=== PATIENT | female | born 1940 | race Caucasian/White ===

== ENCOUNTER 2019-01-23 02:21 | Inpatient (IN) | payer MEDICARE, OTHER, MEDICAID ==
[2019-01-23] MEDS: NITROGLYCERIN 50 MG/D5W (PMX) 250 ML IV (02:20)
[2019-01-23] MEDS: ALBUTEROL 0.083% (NEB) 2.5 MG/3 ML AMP INH (02:40)
[2019-01-23] MEDS: IPRATROPIUM (NEB) 0.5 MG/2.5 ML AMP INH (02:40)
[2019-01-23] MEDS: ASPIRIN 325 MG TAB PO (02:55)
[2019-01-23] MEDS: CEFTRIAXONE 1 GM/50 ML (PMX) 50 ML IVPB ×2 (02:55→07:25)
[2019-01-23] MEDS: FUROSEMIDE 40 MG INJ IV ×2 (02:55→08:49)
[2019-01-23] MEDS: AZITHROMYCIN 500MG/NS (PMX) 250 ML IV (03:36)
[2019-01-23] MEDS ORDERED: ONDANSETRON 4 MG INJ IV ×3 (04:00→06:30)
[2019-01-23] MEDS ORDERED: ALBUTEROL/IPRATROPIUM (NEB) 3 ML AMP NEB (04:00)
[2019-01-23] MEDS ORDERED: ACETAMINOPHEN 650MG/20.3ML CUP PO (04:00)
[2019-01-23] MEDS ORDERED: ACETAMINOPHEN 325 MG TAB PO ×2 (04:00→06:30)
[2019-01-23] MEDS: ONDANSETRON 4 MG INJ IV (04:17)
[2019-01-23] MEDS ORDERED: NITROGLYCERIN (SL) 0.4 MG TAB SL (06:30)
[2019-01-23] MEDS ORDERED: ALBUTEROL/IPRATROPIUM (NEB) 3 ML AMP HHN (06:30)
[2019-01-23] MEDS ORDERED: NACL 0.9% 3 ML SYG IV (06:30)
[2019-01-23] MEDS: FERROUS SULFATE (EC) 325 MG TAB PO (08:45)
[2019-01-23] MEDS: ASPIRIN (EC) 81 MG TAB PO (08:45)
[2019-01-23] MEDS: SENNA/DOCUSATE NA (8.6MG/50MG) TAB PO (08:45)
[2019-01-23] MEDS: GABAPENTIN 400 MG CAP PO ×3 (08:45→20:43)
[2019-01-23] MEDS: BACLOFEN 10 MG TAB PO (08:45)
[2019-01-23] MEDS: ESCITALOPRAM 10 MG TAB PO (08:46)
[2019-01-23] MEDS: ATENOLOL 50 MG TAB PO (08:47)
[2019-01-23] MEDS: FAMOTIDINE 20 MG INJ IV ×2 (08:48→20:47)
[2019-01-23] MEDS: HEPARIN 5,000 UNIT/1 ML VIAL SC ×4 (08:50→21:24)
[2019-01-23] MEDS: MECLIZINE 25 MG TAB PO ×2 (08:53→20:46)
[2019-01-23] MEDS ORDERED: NON-FORMULARY/PATIENT OWN MED (Sitagliptin Phos/Metformin HCl (Janumet 50-500 mg Tablet) 1 PO (09:00)
[2019-01-23] MEDS ORDERED: FUROSEMIDE 40 MG INJ IV (09:00)
[2019-01-23] MEDS: AZITHROMYCIN 500MG/NS (PMX) 250 ML IVPB (11:07)
[2019-01-23] MEDS ORDERED: GLUCAGON 1 MG INJ IM (19:30)
[2019-01-23] MEDS ORDERED: DEXTROSE 50% 50 ML SYRINGE IV ×2 (19:30)
[2019-01-23] MEDS ORDERED: GLUCOSE GEL 15 GRAM TUBE BUCCAL (19:30)
[2019-01-23] MEDS ORDERED: GLUCOSE GEL 15 GRAM TUBE PO ×2 (19:30)
[2019-01-23] MEDS: traMADol 50 MG TAB PO (20:46)
[2019-01-23] MEDS: ATORVASTATIN 10 MG TAB PO (20:46)
[2019-01-23] MEDS: INSULIN ASPART [NOVOLOG] 3 ML PEN SC (21:00)
[2019-01-23] MEDS ORDERED: NON-FORMULARY/PATIENT OWN MED (Lovastatin* 10 MG) PO (21:00)
[2019-01-23] MEDS: INSULIN GLARGINE [LANTus] (100 UNITS/ML) SYG SC (21:23)
[2019-01-24] MEDS: ACCU-CHEK XX (02:30)
[2019-01-24] MEDS: CEFTRIAXONE 1 GM/50 ML (PMX) 50 ML IVPB (05:37)
[2019-01-24] MEDS: INSULIN ASPART [NOVOLOG] 3 ML PEN SC ×4 (07:55→21:22)
[2019-01-24] MEDS: AZITHROMYCIN 500MG/NS (PMX) 250 ML IVPB (08:37)
[2019-01-24] MEDS: FAMOTIDINE 20 MG INJ IV (08:37)
[2019-01-24] MEDS: GABAPENTIN 400 MG CAP PO ×3 (08:38→21:11)
[2019-01-24] MEDS: ESCITALOPRAM 10 MG TAB PO (08:38)
[2019-01-24] MEDS: BACLOFEN 10 MG TAB PO (08:38)
[2019-01-24] MEDS: FERROUS SULFATE (EC) 325 MG TAB PO (08:38)
[2019-01-24] MEDS: SENNA/DOCUSATE NA (8.6MG/50MG) TAB PO (08:38)
[2019-01-24] MEDS: ASPIRIN (EC) 81 MG TAB PO (08:39)
[2019-01-24] MEDS: MECLIZINE 25 MG TAB PO ×2 (08:39→21:12)
[2019-01-24] MEDS: ATENOLOL 50 MG TAB PO (08:40)
[2019-01-24] MEDS: FUROSEMIDE 40 MG INJ IV (08:40)
[2019-01-24] MEDS: HEPARIN 5,000 UNIT/1 ML VIAL SC ×2 (08:55→21:22)
[2019-01-24] MEDS ORDERED: FUROSEMIDE 20 MG INJ IV (15:30)
[2019-01-24] MEDS: ATORVASTATIN 10 MG TAB PO (21:12)
[2019-01-24] MEDS: traMADol 50 MG TAB PO (21:12)
[2019-01-24] MEDS: INSULIN GLARGINE [LANTus] (100 UNITS/ML) SYG SC (21:23)
[2019-01-25] MEDS: INSULIN ASPART [NOVOLOG] 3 ML PEN SC ×5 (01:12→20:58)
[2019-01-25] MEDS: ACCU-CHEK XX ×2 (01:13→02:00)
[2019-01-25] MEDS: CEFTRIAXONE 1 GM/50 ML (PMX) 50 ML IVPB (06:11)
[2019-01-25] MEDS: GABAPENTIN 400 MG CAP PO ×3 (08:22→20:49)
[2019-01-25] MEDS: AZITHROMYCIN 500MG/NS (PMX) 250 ML IVPB (08:22)
[2019-01-25] MEDS: SENNA/DOCUSATE NA (8.6MG/50MG) TAB PO (08:22)
[2019-01-25] MEDS: FERROUS SULFATE (EC) 325 MG TAB PO (08:23)
[2019-01-25] MEDS: ESCITALOPRAM 10 MG TAB PO (08:23)
[2019-01-25] MEDS: FUROSEMIDE 40 MG TAB PO (08:23)
[2019-01-25] MEDS: MECLIZINE 25 MG TAB PO ×2 (08:23→20:49)
[2019-01-25] MEDS: BACLOFEN 10 MG TAB PO (08:23)
[2019-01-25] MEDS: ASPIRIN (EC) 81 MG TAB PO (08:24)
[2019-01-25] MEDS: FAMOTIDINE 20 MG TAB PO (08:24)
[2019-01-25] MEDS: HEPARIN 5,000 UNIT/1 ML VIAL SC ×2 (08:25→20:59)
[2019-01-25] MEDS: ATENOLOL 50 MG TAB PO (08:27)
[2019-01-25] MEDS: AMLODIPINE 2.5 MG TAB PO ×2 (13:56→20:49)
[2019-01-25] MEDS ORDERED: HEPARIN 5,000 UNIT/1 ML VIAL SC (14:00)
[2019-01-25] MEDS: FUROSEMIDE 20 MG INJ IV (15:04)
[2019-01-25] MEDS: ATORVASTATIN 10 MG TAB PO (20:49)
[2019-01-25] MEDS: traMADol 50 MG TAB PO (20:49)
[2019-01-25] MEDS: INSULIN GLARGINE [LANTus] (100 UNITS/ML) SYG SC (21:14)
[2019-01-26] MEDS: ACCU-CHEK XX (02:12)
[2019-01-26] MEDS: CEFTRIAXONE 1 GM/50 ML (PMX) 50 ML IVPB (05:15)
[2019-01-26] MEDS: POLYETHYLENE GLYCOL 17 GM PACKET PO (06:10)
[2019-01-26] MEDS: INSULIN ASPART [NOVOLOG] 3 ML PEN SC ×4 (07:57→21:09)
[2019-01-26] MEDS: AZITHROMYCIN 500MG/NS (PMX) 250 ML IVPB (07:59)
[2019-01-26] MEDS: FAMOTIDINE 20 MG TAB PO (07:59)
[2019-01-26] MEDS: ASPIRIN (EC) 81 MG TAB PO (08:00)
[2019-01-26] MEDS: FERROUS SULFATE (EC) 325 MG TAB PO (08:00)
[2019-01-26] MEDS: MECLIZINE 25 MG TAB PO ×2 (08:00→20:57)
[2019-01-26] MEDS: BACLOFEN 10 MG TAB PO (08:00)
[2019-01-26] MEDS: GABAPENTIN 400 MG CAP PO ×3 (08:00→20:57)
[2019-01-26] MEDS: FUROSEMIDE 40 MG TAB PO (08:00)
[2019-01-26] MEDS: AMLODIPINE 2.5 MG TAB PO ×2 (08:01→20:57)
[2019-01-26] MEDS: ATENOLOL 50 MG TAB PO (08:02)
[2019-01-26] MEDS: HEPARIN 5,000 UNIT/1 ML VIAL SC ×2 (08:06→21:09)
[2019-01-26] MEDS: ESCITALOPRAM 10 MG TAB PO (08:09)
[2019-01-26] MEDS: SENNA/DOCUSATE NA (8.6MG/50MG) TAB PO (20:57)
[2019-01-26] MEDS: ATORVASTATIN 10 MG TAB PO (20:57)
[2019-01-26] MEDS: traMADol 50 MG TAB PO (20:58)
[2019-01-26] MEDS: INSULIN GLARGINE [LANTus] (100 UNITS/ML) SYG SC (21:09)
[2019-01-27] MEDS: ACCU-CHEK XX (02:33)
[2019-01-27] MEDS: CEFTRIAXONE 1 GM/50 ML (PMX) 50 ML IVPB (05:26)
[2019-01-27] MEDS: INSULIN ASPART [NOVOLOG] 3 ML PEN SC ×4 (07:55→20:26)
[2019-01-27] MEDS: GABAPENTIN 400 MG CAP PO ×3 (08:24→20:15)
[2019-01-27] MEDS: MECLIZINE 25 MG TAB PO ×2 (08:24→20:13)
[2019-01-27] MEDS: ASPIRIN (EC) 81 MG TAB PO (08:24)
[2019-01-27] MEDS: ESCITALOPRAM 10 MG TAB PO (08:24)
[2019-01-27] MEDS: FAMOTIDINE 20 MG TAB PO (08:24)
[2019-01-27] MEDS: BACLOFEN 10 MG TAB PO (08:24)
[2019-01-27] MEDS: FERROUS SULFATE (EC) 325 MG TAB PO (08:25)
[2019-01-27] MEDS: ATENOLOL 50 MG TAB PO (08:25)
[2019-01-27] MEDS: AMLODIPINE 2.5 MG TAB PO ×2 (08:25→20:14)
[2019-01-27] MEDS: FUROSEMIDE 40 MG TAB PO (08:26)
[2019-01-27] MEDS: AZITHROMYCIN 500 MG TAB PO (08:26)
[2019-01-27] MEDS: HEPARIN 5,000 UNIT/1 ML VIAL SC ×2 (09:57→20:27)
[2019-01-27] MEDS: traMADol 50 MG TAB PO (20:14)
[2019-01-27] MEDS: SENNA/DOCUSATE NA (8.6MG/50MG) TAB PO (20:14)
[2019-01-27] MEDS: ATORVASTATIN 10 MG TAB PO (20:14)
[2019-01-27] MEDS: INSULIN GLARGINE [LANTus] (100 UNITS/ML) SYG SC (20:26)
[2019-01-28] MEDS: ACCU-CHEK XX (01:46)
[2019-01-28] MEDS: POLYETHYLENE GLYCOL 17 GM PACKET PO (05:56)
[2019-01-28] MEDS: CEFTRIAXONE 1 GM/50 ML (PMX) 50 ML IVPB (05:57)
[2019-01-28] MEDS: INSULIN ASPART [NOVOLOG] 3 ML PEN SC ×3 (07:55→18:25)
[2019-01-28] MEDS: ATENOLOL 50 MG TAB PO (08:32)
[2019-01-28] MEDS: FERROUS SULFATE (EC) 325 MG TAB PO (09:04)
[2019-01-28] MEDS: BACLOFEN 10 MG TAB PO (09:04)
[2019-01-28] MEDS: GABAPENTIN 400 MG CAP PO ×2 (09:04→13:16)
[2019-01-28] MEDS: AMLODIPINE 2.5 MG TAB PO (09:04)
[2019-01-28] MEDS: ESCITALOPRAM 10 MG TAB PO (09:04)
[2019-01-28] MEDS: FAMOTIDINE 20 MG TAB PO (09:05)
[2019-01-28] MEDS: AZITHROMYCIN 500 MG TAB PO (09:05)
[2019-01-28] MEDS: FUROSEMIDE 40 MG TAB PO (09:05)
[2019-01-28] MEDS: ASPIRIN (EC) 81 MG TAB PO (09:05)
[2019-01-28] MEDS: MECLIZINE 25 MG TAB PO (09:05)
[2019-01-28] MEDS: HEPARIN 5,000 UNIT/1 ML VIAL SC (09:45)
== END 2019-01-28 23:08 | DRG 291 ==
LOC: E/R 02:21 → TEL 03:33
PROC: 4A033R1 Measurement of Arterial Saturation, Peripheral, Percutaneous Approach (ICD-10-PCS; principal; 2019-01-23)
DX: I13.0 Hypertensive heart and chronic kidney disease with heart failure and stage 1 through stage 4 chronic kidney disease, or unspecified chronic kidney disease (principal); J18.9 Pneumonia, unspecified organism; I50.33 Acute on chronic diastolic (congestive) heart failure; N17.9 Acute kidney failure, unspecified; N39.0 Urinary tract infection, site not specified; E87.2 Acidosis; E87.5 Hyperkalemia; E78.5 Hyperlipidemia, unspecified; D64.9 Anemia, unspecified; I07.1 Rheumatic tricuspid insufficiency; E11.22 Type 2 diabetes mellitus with diabetic chronic kidney disease; N18.9 Chronic kidney disease, unspecified; Z79.82 Long term (current) use of aspirin
CPT/HCPCS: 36415; 36600; 70450; 70551; 71045; 76775; 80048; 80053; 80061; 81001; 81003; 82043; 82436; 82550; 82553; 82803; 82962; 83036; 83605; 83735; 83880; 84100; 84133; 84155; 84300; 84443; 84484; 85025; 85610; 85730; 87040-91; 87086; 93005; 93306; 94660; 96365; 96375; 97116; 97161; 97165; 97530; 97535; 99285-25